=== PATIENT | female | born 1960 | race Caucasian/White ===

== ENCOUNTER → 2016-09-16 | Outpatient (CLI) | payer OTHER ==
--- NOTE | 2016-09-18 20:04 | SLEEPCENT ---
DATE OF PROCEDURE: 09/16/2016 ORDERED BY: Sabiha Lopez Nocturnal polysomnography was performed for the titration of pressure therapy in this patient with obstructive sleep apnea syndrome confirmed by home testing revealing a respiratory event index of 91. For testing, a ResMed Mirage Quattro mask of full size was used, 4 cm of water pressure were initially applied to the circuit and the lights were extinguished. 7 hours and 55 minutes of data were reviewed. There were 337 minutes of sleep identified. Sleep latency was mildly prolonged at 29 minutes. Rapid eye movement (REM) latency was short at 61 minutes. Sleep architecture showed improvement with optimal pressure therapy. There was evidence of REM rebound late in the study. Overall sleep efficiency was 72%. EKG showed a sinus rhythm with occasions of unifocal ventricular ectopy. Average heart rate 62 beats per minute. EEG shows normal waveforms for awake and sleep. Persistence of respiratory events prompted an increase in continuous positive airway pressure (CPAP) pressure to the optimal pressure of 17 with which the patient slept through REM without respiratory event or oxygen desaturation. There was significant limb activity identified throughout the study with a limb movement arousal index of 29.7. IMPRESSION: 1. Obstructive sleep apnea syndrome (G47.33). 2. Periodic limb movement disorder (G47.61). Limb movement arousal index 29.7. RECOMMENDATION: Nightly use of pressure therapy at 17 cm appears to be sufficient to address the patient's respiratory events. Treatment to reduce the frequency or arousal from limb activity will be necessary to achieve optimal sleep.
== END | disposition home or self-care (01) ==
LOC: M SLEEP 20:00
PROVIDERS: ATTEND Nurse Practitioner Adult Health
DX: G47.33 Obstructive sleep apnea (adult) (pediatric) (principal); G47.61 Periodic limb movement disorder

== ENCOUNTER → 2017-07-23 | Outpatient (CLI) | payer OTHER ==
--- NOTE | 2017-07-23 15:17 | REP ---
Digital diagnostic unilateral left breast mammography with CAD and focused left breast sonography: History: Screening mammography July 19, 2017 was BIRADS category 0 for some new microcalcifications in the lateral aspect of the left breast. Diagnostic imaging was recommended. Comparison is also made with April 29, 2010 prior mammography which showed multiple nodules and cysts in the left breast. Mammographic findings: Magnified focal spot compression CC, MLO and true ML views of the left breast confirm the presence of new heterogeneous polymorphic microcalcifications in the left breast laterally. Some of these appear to correspond with one of the nodular opacities in this region. There are multiple well circumscribed nodular opacities which are generally less prominent than the 2010 study. These nodular opacities are not felt to be suspicious. Sonographic findings: The left breast is scanned from 12 o'clock to 3 o'clock. Several hypoechoic nodules are seen corresponding to the nodular opacities. No spiculation architectural distortion is seen. IMPRESSION: BI-RADS/ACR category 4 mammogram. Suspicious abnormality - biopsy should be considered. Usually requires biopsy. BIRADS category 4 suspicious left breast imaging. New microcalcifications laterally in the left breast adjacent to some benign-appearing nodules. Stereotactic needle biopsy recommended for the microcalcifications. This mammogram was interpreted with the aid of an FDA-approved computer-aided detection system. The patient states that she/he has not had a clinical breast exam in over a year. The patient letter being requested is M4 . Signed by John Jaime MD 07/23/2017 04:51 P
== END ==
LOC: M RAD 10:36
PROVIDERS: ATTEND Nurse Practitioner
DX: R92.0 Mammographic microcalcification found on diagnostic imaging of breast (principal); R92.8 Other abnormal and inconclusive findings on diagnostic imaging of breast
CPT/HCPCS: 76642; G0206

== ENCOUNTER → 2017-08-26 | Outpatient (CLI) | payer OTHER ==
[~2017-08-26] MED LIST: LIDOCAINE 1% MDV 20ML VIAL As Ordered ONE
--- NOTE | 2017-08-26 15:22 | REP ---
SPECIMEN RADIOGRAPH: Specimen radiograph performed following stereotactic biopsy of left breast microcalcifications. There are calcifications seen in specimens 2 and 3, and possibly specimen 4. Signed by Umair Escoto MD 08/26/2017 04:55 P
--- NOTE | 2017-08-26 15:23 | REP ---
STEREOTACTIC LEFT BREAST BIOPSY The procedure was performed under the direct supervision of Dr. Escoto The patient has a history of new microcalcifications laterally in the left breast seen on a previous mammogram performed on 07/23/2017 The risks and benefits of the procedure were explained to the patient and informed consent was obtained. A craniocaudal approach was utilized. The calcifications were localized using stereotactic mammographic guidance. 1% Xylocaine was used as a local anesthetic. An 8 gauge, suction assisted Mammotome needle was inserted and 6 core biopsy samples were obtained. Specimen radiograph demonstrates the presence of calcifications to be within the specimen. A marker clip was placed at the biopsy site. The patient tolerated the procedure well and there were no immediate complications. After the appropriate amount of monitored convalescence, the patient was discharged from the department. Reviewed by CONNIE Gonzales 08/26/2017 02:04 PSigned by Umair Escoto MD 08/26/2017 03:14 P
--- NOTE | 2017-08-26 15:46 | REP ---
POST BIOPSY MAMMOGRAM LEFT BREAST: Post biopsy mammogram left breast performed in the ML, MLO, CC and axillary CC projections. Metallic clip is seen in the region of the biopsied calcifications. It is deployed approximately 2 to 3 cm deep to the calcifications, which were biopsied using a cranial to caudal approach. Multiple calcifications were biopsied and are no longer present on the post biopsy mammogram. There were multiple calcifications in the obtained specimens. Signed by Umair Escoto MD 08/26/2017 04:55 P
== END ==
LOC: M RADPRO 12:22
PROVIDERS: ATTEND Surgery
DX: R92.0 Mammographic microcalcification found on diagnostic imaging of breast (principal); F17.210 Nicotine dependence, cigarettes, uncomplicated; Z79.82 Long term (current) use of aspirin; Z79.899 Other long term (current) drug therapy

== ENCOUNTER → 2017-09-22 | Outpatient (CLI) | payer OTHER | LOC: M RAD 14:08 | DX: M25.561 Pain in right knee (principal) ==

== ENCOUNTER → 2018-06-16 | Outpatient (CLI) | payer OTHER | LOC: M RAD 11:08 | DX: I10 Essential (primary) hypertension (principal) | CPT/HCPCS: 76775 ==

== ENCOUNTER → 2018-07-01 | Outpatient (CLI) | payer OTHER ==
[2018-07-01 10:25] LABS: HEMATOCRIT 52.8 % (36.0-47.0); HEMOGLOBIN 17.1 g/dl (12.0-15.5); MEAN CORPUSCULAR HEMOGLOBIN 29.4 pg (27.0-33.0); MEAN CORPUSCULAR HGB CONC 32.4 g/dl (32.0-36.5); MEAN CORPUSCULAR VOLUME 90.9 fl (80.0-96.0); PLATELET COUNT, AUTOMATED 267 10^3/uL (150-450); RED BLOOD COUNT 5.81 10^6/uL (4.00-5.40); RED CELL DISTRIBUTION WIDTH 12.8 % (11.5-14.5); WHITE BLOOD COUNT 7.6 10^3/uL (4.0-10.0)
[2018-07-01 10:36] LABS: INR 0.97; PARTIAL THROMBOPLASTIN TIME 27.6 SECONDS (25.4-37.6)
[2018-07-01 10:53] LABS: ALBUMIN 3.6 GM/DL (3.2-5.2); ALBUMIN/GLOBULIN RATIO 1.06 (1.00-1.93); ALKALINE PHOSPHATASE 103 U/L (45-117); ALT/SGPT 22 U/L (12-78); ANION GAP 8 MEQ/L (8-16); AST/SGOT 13 U/L (7-37); BILIRUBIN,TOTAL 0.6 MG/DL (0.2-1.0); BLOOD UREA NITROGEN 19 MG/DL (7-18); CALCIUM LEVEL 9.5 MG/DL (8.8-10.2); CARBON DIOXIDE LEVEL 36 MEQ/L (21-32); CHLORIDE LEVEL 102 MEQ/L (98-107); CREATININE FOR GFR 0.95 MG/DL (0.55-1.30); ERYTHROCYTE SEDIMENTATION RATE 4 mm/hr (0-30); GLOMERULAR FILTRATION RATE > 60.0 (>45); GLUCOSE, FASTING 77 MG/DL (70-100); POTASSIUM SERUM 4.5 MEQ/L (3.5-5.1); SODIUM LEVEL 146 MEQ/L (136-145)
== END ==
LOC: M LAB 09:45
DX: Z01.818 Encounter for other preprocedural examination (principal); I44.0 Atrioventricular block, first degree; R94.31 Abnormal electrocardiogram [ECG] [EKG]
CPT/HCPCS: 71046

== ENCOUNTER 2018-07-12 06:48 | Inpatient (IN) | payer OTHER ==
[2018-07-12] MEDS: LIDOCAINE 1% MDV 20ML VIAL SQ (06:00)
[2018-07-12] MEDS: LR 1,000 ML IV ×4 (07:35→22:21)
[2018-07-12] MEDS: ACETAMINOPHEN 500 MG TAB PO (07:45)
[2018-07-12] MEDS ORDERED: MIDAZOLAM INJ 2 MG/2 ML VIAL (J2250) As Ordered ×2 (08:11→10:50)
[2018-07-12] MEDS ORDERED: fentaNYL 100 MCG/2 ML INJECTION (J3010) As Ordered ×2 (08:11→10:50)
[2018-07-12] MEDS: MIDAZOLAM INJ 2 MG/2 ML VIAL (J2250) IV (08:43)
[2018-07-12] MEDS ORDERED: LIDOCAINE 1% MDV 20ML VIAL (10:30)
[2018-07-12] MEDS ORDERED: dexameTHASONE 10 MG/1 ML VIAL PRES.FREE (J1100) (10:30)
[2018-07-12] MEDS ORDERED: ROPIvacaine 0.5% 30 ML INJECTION (J2795 PER 1MG) (10:30)
[2018-07-12] MEDS ORDERED: PHENYLephrine HCL 500 MCG/5 ML (100MCG/ML) SYRINGE (J2370) As Ordered (10:50)
[2018-07-12] MEDS ORDERED: PROPOFOL 200 MG/20 ML VIAL As Ordered ×2 (10:50→11:39)
[2018-07-12] MEDS ORDERED: BUPIVACAINE/DEXTROSE 0.75% 2 ML AMP As Ordered (10:50)
[2018-07-12] MEDS: EPINEPHrine INJ 1 MG/ML 1ML AMP As Ordered (11:01)
[2018-07-12] MEDS: ceFAZolin 1GM INJ (J0690 PER 500MG) As Ordered (11:02)
[2018-07-12] MEDS: BUPIVACAINE HCL 0.25% 30 ML VIAL As Ordered (11:02)
[2018-07-12] MEDS: TRANEXAMIC ACID 100 MG/ML 10ML VIAL As Ordered (11:04)
[2018-07-12] MEDS: BUPIVACAINE LIPOSOME/PF 1.3% 20 ML VIAL (13.3MG/ML)(EXPAREL) As Ordered (11:04)
[2018-07-12] MEDS ORDERED: MORPHINE 1MG/ML IN 0.9% NACL 100ML IV BAG As Ordered (12:21)
[2018-07-12] MEDS ORDERED: HYDROMORPHONE HCL 0.5 MG/ 0.5 ML SYRINGE (J1170 PER 1) IV (12:45)
[2018-07-12] MEDS ORDERED: PERCOCET 5MG/325MG TAB PO (12:45)
[2018-07-12] MEDS ORDERED: ONDANSETRON 4MG/2ML VIAL (J2405) IV (12:45)
[2018-07-12] MEDS ORDERED: fentaNYL 100 MCG/2 ML INJECTION (J3010) IV (12:45)
[2018-07-12] MEDS ORDERED: diphenhydrAMINE INJ 50MG/ML VIAL (J1200) IV (13:00)
[2018-07-12] MEDS ORDERED: ACETAMINOPHEN TAB 650MG DOSE (2X325MG) PO (13:00)
[2018-07-12] MEDS ORDERED: EPIDURAL/PCA KEYS XX (13:00)
[2018-07-12] MEDS ORDERED: NALOXONE INJ 0.4 MG/1 ML VIAL (J2310) IV (13:00)
[2018-07-12] MEDS ORDERED: FLEET ENEMA PR (13:00)
[2018-07-12] MEDS ORDERED: NALBUPHINE HCL 10 MG/ML AMP (J2300) IV (13:00)
[2018-07-12] MEDS ORDERED: MORPHINE 1MG/ML IN 0.9% NACL 100ML IV BAG IV (13:00)
[2018-07-12] MEDS: METOPROLOL SUCC (TopROL XL) 100MG *XL* TAB PO (20:38)
[2018-07-12] MEDS: LISINOPRIL 20 MG TAB PO (20:38)
[2018-07-12] MEDS: ONDANSETRON 4MG/2ML VIAL (J2405) IV (21:11)
[2018-07-13] MEDS: MOM 30ML SUSPENSION UDC PO ×3 (06:30→09:39)
[2018-07-13 08:27] LABS: HEMATOCRIT 46.4 % (36.0-47.0); HEMOGLOBIN 14.8 g/dl (12.0-15.5); MEAN CORPUSCULAR HEMOGLOBIN 29.1 pg (27.0-33.0); MEAN CORPUSCULAR HGB CONC 31.9 g/dl (32.0-36.5); MEAN CORPUSCULAR VOLUME 91.2 fl (80.0-96.0); PLATELET COUNT, AUTOMATED 211 10^3/uL (150-450); RED BLOOD COUNT 5.09 10^6/uL (4.00-5.40); RED CELL DISTRIBUTION WIDTH 12.8 % (11.5-14.5); WHITE BLOOD COUNT 10.9 10^3/uL (4.0-10.0)
[2018-07-13 08:48] LABS: ANION GAP 4 MEQ/L (8-16); BLOOD UREA NITROGEN 15 MG/DL (7-18); CALCIUM LEVEL 8.6 MG/DL (8.8-10.2); CARBON DIOXIDE LEVEL 35 MEQ/L (21-32); CHLORIDE LEVEL 101 MEQ/L (98-107); CREATININE FOR GFR 0.72 MG/DL (0.55-1.30); GLOMERULAR FILTRATION RATE > 60.0 (>45); GLUCOSE, FASTING 107 MG/DL (70-100); POTASSIUM SERUM 3.6 MEQ/L (3.5-5.1); SODIUM LEVEL 140 MEQ/L (136-145)
[2018-07-13] MEDS: ASPIRIN 81 MG ENTERIC TAB PO (08:56)
[2018-07-13] MEDS: SENOKOT S TAB PO ×2 (08:56→20:47)
[2018-07-13] MEDS: MIRALAX *UNIT DOSE* 17GM PACKET PO (08:56)
[2018-07-13] MEDS: LISINOPRIL 20 MG TAB PO ×2 (08:56→20:47)
[2018-07-13] MEDS: VITAMIN D 1,000 INTERNATIONAL UNITS TABLET PO (08:56)
[2018-07-13] MEDS: METOPROLOL SUCC (TopROL XL) 100MG *XL* TAB PO ×2 (08:56→20:46)
[2018-07-13] MEDS: ONDANSETRON 4 MG TAB (S0181) PO (09:43)
[2018-07-13] MEDS: PERCOCET 5MG/325MG TAB PO ×3 (13:43→23:51)
[2018-07-13] MEDS: RIVAROXABAN 10 MG TAB (XARELTO) PO (17:07)
[2018-07-14] MEDS: PERCOCET 5MG/325MG TAB PO ×4 (04:38→21:34)
[2018-07-14 06:55] LABS: HEMOGLOBIN 14.5 g/dl (12.0-15.5); MEAN CORPUSCULAR HEMOGLOBIN 29.4 pg (27.0-33.0); MEAN CORPUSCULAR HGB CONC 32.2 g/dl (32.0-36.5); MEAN CORPUSCULAR VOLUME 91.1 fl (80.0-96.0); PLATELET COUNT, AUTOMATED 187 10^3/uL (150-450); RED BLOOD COUNT 4.94 10^6/uL (4.00-5.40); RED CELL DISTRIBUTION WIDTH 12.9 % (11.5-14.5); WHITE BLOOD COUNT 9.2 10^3/uL (4.0-10.0)
[2018-07-14 07:22] LABS: ANION GAP 3 MEQ/L (8-16); BLOOD UREA NITROGEN 12 MG/DL (7-18); CALCIUM LEVEL 8.6 MG/DL (8.8-10.2); CARBON DIOXIDE LEVEL 38 MEQ/L (21-32); CHLORIDE LEVEL 98 MEQ/L (98-107); CREATININE FOR GFR 0.67 MG/DL (0.55-1.30); GLOMERULAR FILTRATION RATE > 60.0 (>45); GLUCOSE, FASTING 115 MG/DL (70-100); POTASSIUM SERUM 3.5 MEQ/L (3.5-5.1); SODIUM LEVEL 139 MEQ/L (136-145)
[2018-07-14] MEDS: MOM 30ML SUSPENSION UDC PO (08:59)
[2018-07-14] MEDS: LISINOPRIL 20 MG TAB PO ×2 (09:01→21:35)
[2018-07-14] MEDS: SENOKOT S TAB PO ×2 (09:01→21:35)
[2018-07-14] MEDS: ASPIRIN 81 MG ENTERIC TAB PO (09:02)
[2018-07-14] MEDS: METOPROLOL SUCC (TopROL XL) 100MG *XL* TAB PO ×2 (09:04→21:35)
[2018-07-14] MEDS: VITAMIN D 1,000 INTERNATIONAL UNITS TABLET PO (09:04)
[2018-07-14] MEDS: MIRALAX *UNIT DOSE* 17GM PACKET PO (09:06)
[2018-07-14] MEDS: RIVAROXABAN 10 MG TAB (XARELTO) PO (17:26)
[2018-07-15] MEDS: PERCOCET 5MG/325MG TAB PO ×4 (05:35→21:30)
[2018-07-15 07:19] LABS: HEMATOCRIT 43.3 % (36.0-47.0); HEMOGLOBIN 14.2 g/dl (12.0-15.5); MEAN CORPUSCULAR HEMOGLOBIN 29.9 pg (27.0-33.0); MEAN CORPUSCULAR HGB CONC 32.8 g/dl (32.0-36.5); MEAN CORPUSCULAR VOLUME 91.2 fl (80.0-96.0); PLATELET COUNT, AUTOMATED 194 10^3/uL (150-450); RED BLOOD COUNT 4.75 10^6/uL (4.00-5.40); RED CELL DISTRIBUTION WIDTH 12.9 % (11.5-14.5); WHITE BLOOD COUNT 8.5 10^3/uL (4.0-10.0)
[2018-07-15 07:46] LABS: ANION GAP 4 MEQ/L (8-16); BLOOD UREA NITROGEN 13 MG/DL (7-18); CALCIUM LEVEL 8.8 MG/DL (8.8-10.2); CARBON DIOXIDE LEVEL 37 MEQ/L (21-32); CHLORIDE LEVEL 99 MEQ/L (98-107); CREATININE FOR GFR 0.65 MG/DL (0.55-1.30); GLOMERULAR FILTRATION RATE > 60.0 (>45); GLUCOSE, FASTING 126 MG/DL (70-100); POTASSIUM SERUM 3.5 MEQ/L (3.5-5.1); SODIUM LEVEL 140 MEQ/L (136-145)
[2018-07-15] MEDS: MOM 30ML SUSPENSION UDC PO (10:12)
[2018-07-15] MEDS: VITAMIN D 1,000 INTERNATIONAL UNITS TABLET PO (10:13)
[2018-07-15] MEDS: LISINOPRIL 20 MG TAB PO ×2 (10:14→21:29)
[2018-07-15] MEDS: ASPIRIN 81 MG ENTERIC TAB PO (10:14)
[2018-07-15] MEDS: SENOKOT S TAB PO ×2 (10:15→21:29)
[2018-07-15] MEDS: MIRALAX *UNIT DOSE* 17GM PACKET PO (10:16)
[2018-07-15] MEDS: METOPROLOL SUCC (TopROL XL) 100MG *XL* TAB PO ×2 (10:17→21:29)
[2018-07-15] MEDS: RIVAROXABAN 10 MG TAB (XARELTO) PO (18:58)
[2018-07-16] MEDS: PERCOCET 5MG/325MG TAB PO ×3 (01:46→14:29)
[2018-07-16] MEDS: MIRALAX *UNIT DOSE* 17GM PACKET PO (08:30)
[2018-07-16] MEDS: LISINOPRIL 20 MG TAB PO (08:31)
[2018-07-16] MEDS: SENOKOT S TAB PO (08:31)
[2018-07-16] MEDS: MOM 30ML SUSPENSION UDC PO (08:31)
[2018-07-16] MEDS: METOPROLOL SUCC (TopROL XL) 100MG *XL* TAB PO (08:31)
[2018-07-16] MEDS: VITAMIN D 1,000 INTERNATIONAL UNITS TABLET PO (08:31)
[2018-07-16] MEDS: ASPIRIN 81 MG ENTERIC TAB PO (08:31)
== END 2018-07-16 12:00 | disposition home health service (06) | DRG 470 ==
LOC: M OR 06:48 → M MS5PR 13:05
PROC: 0SRC0J9 Replacement of Right Knee Joint with Synthetic Substitute, Cemented, Open Approach (ICD-10-PCS; principal; 2018-07-12 09:30)
DX: M17.11 Unilateral primary osteoarthritis, right knee (principal); Z68.41 Body mass index [BMI] 40.0-44.9, adult; F17.210 Nicotine dependence, cigarettes, uncomplicated; I10 Essential (primary) hypertension; E66.01 Morbid (severe) obesity due to excess calories; F32.9 Major depressive disorder, single episode, unspecified; E55.9 Vitamin D deficiency, unspecified; Z79.82 Long term (current) use of aspirin; Z79.899 Other long term (current) drug therapy

== ENCOUNTER → 2020-02-29 | Outpatient (CLI) | payer OTHER ==
[~2020-02-29] MED LIST changes: +ASPI81TA26 PO; -LIDOCAINE 1% MDV 20ML VIAL As Ordered ONE; +LISI20TA33 PO; +METO1TAB33 PO; +PERC5TAB12 PO; +VITA500046 PO; +XARE10TA PO; +[UNRECOGNIZED DRUG - REMARK]
--- NOTE | 2020-02-29 10:16 | PFTRPT ---
Height: 61.50 Inches Weight: 276.00 Lbs BSA: 2.18 Diagnosis: J44.9 DATE OF STUDY: 02/29/2020 ORDERED BY: Antonino Baez Spirometry: Pre and post bronchodilator study of excellent technical quality. Forced vital capacity reduced. FEV1 borderline in proportion. Obstructive index is, therefore, borderline as well. Flow Volume Loop: Expiratory limb of the flow volume loop does suggest flow rate limitation. Favorable bronchodilator response is identified. Lung Volumes: Total lung capacity normal. Residual volume suggests concomitant air trapping. Diffusing Capacity: Diffusing capacity is reduced but is appropriate for alveolar volume. Hemoglobin: Hemoglobin acceptable at 15. Airway Mechanics: Airway resistance and conductance are normal. IMPRESSION: At least mild reversible obstructive ventilatory defect with underlying air trapping. Please correlate clinically. MTDD
== END ==
LOC: M CARPUL 09:29
PROVIDERS: ATTEND Physician Assistant
DX: J44.9 Chronic obstructive pulmonary disease, unspecified (principal)

== ENCOUNTER 2020-03-29 23:17 | Emergency (ER) | payer OTHER ==
[~2020-03-29 23:17] MED LIST changes: +LISI-538 PO; -LISI20TA33 PO
[2020-03-29 23:20] VITALS: BP 132/83
[2020-03-29] MEDS ORDERED: METAL LOCK LOOP XX ONE (23:27)
[2020-03-29] MEDS ORDERED: DERMABOND TOPICAL SKIN ADHESIVE TOP ONE (23:30)
--- NOTE | 2020-03-29 23:55 | REPVR ---
PROCEDURE INFORMATION: Exam: CT Head Without Contrast Exam date and time: 03/29/2020 11:26 PM Age: 60 years old Clinical indication: Injury or trauma; Fall; Initial encounter; Concussion / head injury; Consciousness not specified TECHNIQUE: Imaging protocol: Computed tomography of the head without contrast. Radiation optimization: All CT scans at this facility use at least one of these dose optimization techniques: automated exposure control; mA and/or kV adjustment per patient size (includes targeted exams where dose is matched to clinical indication); or iterative reconstruction. COMPARISON: No relevant prior studies available. FINDINGS: Brain: There is mild cerebral atrophy. Changes of chronic white matter microvascular disease are present. No signs of a recent infarction or hemorrhage. Ventricles: Normal. No ventriculomegaly. Bones/joints: Unremarkable. No acute fracture. Sinuses: Visualized sinuses are unremarkable. No fluid levels. Mastoid air cells: Visualized mastoid air cells are well aerated. Soft tissues: Soft tissue swelling with small laceration in the midline frontal scalp. No foreign bodies. IMPRESSION: Atrophy and chronic white matter changes. No acute intracranial abnormality. Electronically signed by: Marck Mak On 03/29/2020 23:54:47 PM
== END 2020-03-30 00:32 | disposition left against medical advice (07) ==
LOC: M ED 23:17
DX: S01.81XA Laceration without foreign body of other part of head, initial encounter (principal); W01.198A Fall on same level from slipping, tripping and stumbling with subsequent striking against other object, initial encounter; Y92.238 Other place in hospital as the place of occurrence of the external cause; I10 Essential (primary) hypertension; R06.81 Apnea, not elsewhere classified; Z99.81 Dependence on supplemental oxygen; F17.200 Nicotine dependence, unspecified, uncomplicated

== ENCOUNTER → 2020-07-31 | Outpatient (REF) | payer OTHER | LOC: M LAB REF 17:07 | PROVIDERS: ATTEND Internal Medicine Endocrinology, Diabetes & Metabolism | DX: E04.1 Nontoxic single thyroid nodule (principal) ==

== ENCOUNTER → 2021-02-28 | Outpatient (CLI) | payer OTHER ==
[~2021-02-28] MED LIST changes: -LISI-538 PO; +LISI20TA33 PO
--- NOTE | 2021-03-02 10:22 | REP ---
INDICATION: NICOTINE DEPENDENCE COMPARISON: None. TECHNIQUE: Axial noncontrast images from the thoracic inlet to the upper abdomen using low-dose lung screening technique (LDCT). FINDINGS: Lung walker are well aerated and linear changes at the bilateral lung bases suggest atelectasis versus chronic changes. A small 4-5 mm nodule in the left lower lobe (series 201; image 83) cannot be excluded and is partially obscured by linear opacities. No further focal consolidation, obvious nodule or mass. No effusion. No pneumothorax. Tracheobronchial tree is patent. IMPRESSION: 1. Lung-RADS category 3-S. 4.5 mm nodule in the left lower lobe cannot be excluded due to suspected basilar atelectasis/scarring. No prior exam for comparison.. 2. Management recommendations include 6 month follow-up examination. <Electronically signed by Wilfredo Parkinson > 03/02/21 [id number]
== END ==
LOC: M RAD 10:10
PROVIDERS: ATTEND Physician Assistant
DX: Z87.891 Personal history of nicotine dependence (principal)

== ENCOUNTER → 2021-09-03 | Outpatient (CLI) | payer OTHER | LOC: M RAD 13:28 | PROVIDERS: ATTEND Physician Assistant | DX: R91.8 Other nonspecific abnormal finding of lung field (principal); R59.0 Localized enlarged lymph nodes ==